=== PATIENT | female | born 1990 | race Caucasian/White ===

== ENCOUNTER → 2022-05-07 10:00 | Outpatient (BNVA) | payer SELFPAY | PROVIDERS: PCP Family Medicine; Visit Provider Family Medicine | DX: N64.52 Nipple discharge (principal) | CPT/HCPCS: 80048; 84146; 84443 ==

== ENCOUNTER → 2022-05-20 09:24 | Outpatient (BNVA) | payer SELFPAY | PROVIDERS: PCP Family Medicine; Visit Provider Family Medicine | DX: R79.89 Other specified abnormal findings of blood chemistry (principal); R53.83 Other fatigue; R53.81 Other malaise | CPT/HCPCS: 83516; 84439; 84443; 84481 ==

== ENCOUNTER 2022-06-03 14:48 | Outpatient (CLI) | payer SELFPAY ==
--- NOTE | 2022-06-03 | US_ITS ---
WS: [id number] ULTRASOUND BREAST BILATERAL TECHNIQUE: Ultrasound bilateral breast focused area of concern. CLINICAL INFORMATION: BLOODY DISCHARGE FROM NIPPLE COMPARISON: None. FINDINGS: Bilateral breast ultrasound directed towards the areola RIGHT BREAST: Dense underlying parenchymal tissue RIGHT subareolar region. Incidental simple appearin g cyst at the 2:00 position areola measuring 9 x 8 mm. Additional hypoechoic lesion at the 3:00 position measuring 10 x 10 mm also likely represents a simpl e cyst but difficult to completely evaluate due to dense shadowing overlying parenchymal tissue. This is probably benign and recommend 6 month follow-up ultrasound to confirm stability. LEFT BREAST: Incidental dense parenchymal tissue with mild ductal ectasia subareolar LEFT breast. No suspicious LEFT breast lesions. US/US breast BI limited* [id number] IMPRESSION: BI-RADS 3 probably benign Recommend 6 month follow-up RIGHT breast ultrasound with attention to the hypoe choic lesion at the 3:00 position
== END 2022-06-03 14:49 | disposition home or self-care (01) ==
PROVIDERS: PCP Family Medicine; Visit Provider Family Medicine
DX: N64.52 Nipple discharge (principal); N60.01 Solitary cyst of right breast
CPT/HCPCS: 76642

== ENCOUNTER 2022-07-24 11:41 | Outpatient (CLI) | payer SELFPAY ==
--- NOTE | 2022-07-24 11:45 | US_ITS ---
WS: [id number] THYROID ULTRASOUND HISTORY: hyperthyroidism COMPARISON: None available. Right lobe: 2.1 cm x 1.8 cm x 5.8 cm (w x ap x l). Volume: 11.3 cm3. Thyroid gland is very slightly enlarged with mild diffuse heterogeneity. There are no discrete nodule s. The vascularity is normal. No adjacent lymph nodes. Left lobe: 2.0 cm x 1.9 cm x 5.0 cm (w x ap x l). Volume: 9.9 cm3. Very mildly enlarged gland. Mild diffuse coarse echotexture and heterogeneity but no discrete nodule. Vascularity is normal. No adenopathy. Isthmus: 0.3 cm. US/US thyroid [id number] IMPRESSION: 1. Very mildly enlarged heterogeneous gland without nodules. 2. No significant increased vascularity.
== END 2022-07-24 11:42 | disposition home or self-care (01) ==
LOC: RAD 11:41
PROVIDERS: PCP Family Medicine; Visit Provider Internal Medicine
DX: E05.90 Thyrotoxicosis, unspecified without thyrotoxic crisis or storm (principal)
CPT/HCPCS: 76536

== ENCOUNTER 2022-12-02 12:36 | Outpatient (CLI) | payer SELFPAY ==
--- NOTE | 2022-12-02 12:46 | US_ITS ---
WS: [id number] ULTRASOUND BREAST RIGHT TECHNIQUE: Ultrasound right breast focused area of concern. CLINICAL INFORMATION: CYST OF R BREAST COMPARISON: Ultrasound June 03, 2022 FINDINGS: Ultrasound RIGHT breast at 3:00 position subareolar. Previously described lesion today appears to rep resent a simple cyst with through transmission. This measures 1.2 x 1.1 x 0.7 cm and is benign. No ad ditional follow-up necessary. No other suspicious findings. US/US breast RT limited* [id number] IMPRESSION: BI-RADS 2 benign FOLLOW UP: Annual screening mammography age 39
== END 2022-12-02 12:37 | disposition home or self-care (01) ==
LOC: RAD 12:39
PROVIDERS: PCP Family Medicine; Visit Provider Family Medicine
DX: N60.01 Solitary cyst of right breast (principal)
CPT/HCPCS: 76642

== ENCOUNTER → 2023-10-26 10:26 | Outpatient (BNVA) | payer SELFPAY | PROVIDERS: PCP Family Medicine; Visit Provider Dermatology | DX: Z01.89 Encounter for other specified special examinations (principal) ==